=== PATIENT | female | born 1955 | race Caucasian/White ===

== ENCOUNTER → 2016-11-24 | Outpatient (CLI) | payer BC ==
--- NOTE | 2016-11-27 10:35 | MM ---
Reason for exam: screening (asymptomatic). Last mammogram was performed 1 year and 4 months ago. History: Patient is postmenopausal and had first child at age 32. Family history of breast cancer in mother at age 50, breast cancer in maternal aunt at age 40, breast cancer in maternal aunt at age 50, and breast cancer in maternal cousin. Benign MG stereo VAD BX RT of the right breast, August 12, 2014. Took hormonal contraceptives for 2 years. Physical Findings: A clinical breast exam by your physician is recommended on an annual basis and results should be correlated with mammographic findings. MG 3D Screening Mammo W/Cad Bilateral CC and MLO view(s) were taken. Prior study comparison: August 02, 2015, bilateral MG 3d screening mammo w/cad. August 09, 2014, right breast MG work up mamm w CAD RT. There are scattered fibroglandular densities. Previous mammotome biopsy in the right breast. There is no discrete abnormality. ASSESSMENT: Benign, BI-RAD 2 RECOMMENDATION: Routine screening mammogram of both breasts in 1 year.
== END ==
LOC: RADMAMWWP 10:02
PROVIDERS: ATTEND Family Medicine
DX: Z12.31 Encounter for screening mammogram for malignant neoplasm of breast (principal)
CPT/HCPCS: 77063; G0202

== ENCOUNTER → 2018-04-29 | Outpatient (CLI) | payer BC ==
--- NOTE | 2018-05-01 08:47 | MM ---
Reason for exam: screening (asymptomatic). Last mammogram was performed 1 year and 5 months ago. History: Patient is postmenopausal and had first child at age 32. Family history of breast cancer in mother at age 50, breast cancer in maternal aunt at age 40, breast cancer in maternal aunt at age 50, and breast cancer in maternal cousin. Benign MG stereo VAD BX RT of the right breast, August 12, 2014. Took hormonal contraceptives for 2 years. Physical Findings: A clinical breast exam by your physician is recommended on an annual basis and results should be correlated with mammographic findings. MG 3D Screening Mammo W/Cad Bilateral CC and MLO view(s) were taken. Prior study comparison: November 24, 2016, bilateral MG 3d screening mammo w/cad. August 02, 2015, bilateral MG 3d screening mammo w/cad. There are scattered fibroglandular densities. Previous mammotome biopsy in the right breast. No significant changes when compared with prior studies. ASSESSMENT: Negative, BI-RAD 1 RECOMMENDATION: Routine screening mammogram of both breasts in 1 year.
== END | disposition home or self-care (01) ==
LOC: RADMAMWWP 07:54
PROVIDERS: ATTEND Family Medicine
DX: Z12.31 Encounter for screening mammogram for malignant neoplasm of breast (principal)
CPT/HCPCS: 77063; 77067

== ENCOUNTER → 2019-06-29 | Outpatient (CLI) | payer BC ==
--- NOTE | 2019-07-01 10:33 | MM ---
Reason for exam: screening (asymptomatic). Last mammogram was performed 1 year and 2 months ago. History: Patient is postmenopausal and had first child at age 32. Family history of breast cancer in mother at age 50, breast cancer in maternal aunt at age 40, breast cancer in maternal aunt at age 50, and breast cancer in maternal cousin. Benign MG stereo VAD BX RT of the right breast, August 12, 2014. Took hormonal contraceptives for 2 years. Physical Findings: A clinical breast exam by your physician is recommended on an annual basis and results should be correlated with mammographic findings. MG 3D Screening Mammo W/Cad Bilateral CC and MLO view(s) were taken. Prior study comparison: April 29, 2018, bilateral MG 3d screening mammo w/cad. November 24, 2016, bilateral MG 3d screening mammo w/cad. There are scattered fibroglandular densities. Previous mammotome biopsy in the right breast. No significant changes when compared with prior studies. ASSESSMENT: Negative, BI-RAD 1 RECOMMENDATION: Routine screening mammogram of both breasts in 1 year.
== END | disposition home or self-care (01) ==
LOC: RADMAMWWP 15:50
PROVIDERS: ATTEND Family Medicine
DX: Z12.31 Encounter for screening mammogram for malignant neoplasm of breast (principal)
CPT/HCPCS: 77063; 77067

== ENCOUNTER 2019-07-06 07:53 | Day surgery (SDC) | payer BC ==
[2019-07-01 15:28] VITALS: BMI 31.1
[~2019-07-06 07:53] MED LIST: LACTATED RINGERS 1,000 ML IV SCH; LIDOCAINE 1% 20 ML VIAL (10MG/ML) FOR IV START INTRADERMA PRN
[2019-07-06 08:50] VITALS: RESP 16; TEMP 98.6
[2019-07-06] MEDS ORDERED: PROPOFOL 10 MG/ML 20 ML VIAL IV ONE (09:14)
[2019-07-06] MEDS ORDERED: LIDOCAINE 1% INJ 10MG/ML (20 ML MDV) ONE (09:14)
--- NOTE | 2019-07-06 09:21 | P.GSHP ---
History of Present Illness H&P Date: 07/06/19 Chief Complaint: History of colonic Polyps This is a 63-year-old female who presents today for colonoscopy. Patient is. History of colon polyps. Past Medical History Past Medical History: GERD/Reflux Additional Past Medical History / Comment(s): CROHNS, PAST HX OF MIGRAINES, BENIGN ESSENTIAL TREMORS. History of Any Multi-Drug Resistant Organisms: None Reported Past Surgical History: Bowel Resection, Cholecystectomy, Tonsillectomy Additional Past Surgical History / Comment(s): BOWEL RESECTION X2, EXPLORATORY WITH DIAGNOSIS OF CROHNS (JUN 1982). Past Anesthesia/Blood Transfusion Reactions: No Reported Reaction Past Psychological History: No Psychological Hx Reported Smoking Status: Never smoker Past Alcohol Use History: Rare Past Drug Use History: None Reported - Past Family History Mother Family Medical History: Cancer Additional Family Medical History / Comment(s): BREAST CANCER WITH BONE METS Father Family Medical History: Cancer Additional Family Medical History / Comment(s): LUNG CANCER Medications and Allergies Home Medications Medication Instructions Recorded Confirmed Type Levothyroxine Sodium [Synthroid] 112 mcg PO DAILY 07/30/14 07/06/19 History Calcium/Magnesium/Zinc 1 each PO DAILY 07/01/19 07/06/19 History [Fgkpysg-Ukhazjxav-Omzy Tablet] Prevacid (Unknown Dose) 1 dose PO DAILY 07/01/19 07/06/19 History Propranolol HCl [Inderal Xl] 80 mg PO DAILY 07/01/19 07/06/19 History Vitamin B Complex 1 each PO DAILY 07/01/19 07/06/19 History Vitamin K (Unknown Dose) 1 tab PO DAILY 07/01/19 07/06/19 History Allergies Allergy/AdvReac Type Severity Reaction Status Date / Time Penicillins Allergy Unknown Verified 07/06/19 08:34 Childhood Surgical - Exam Vital Signs Temp Pulse Resp BP Pulse Ox 98.6 F 70 16 136/77 96 07/06/19 08:40 07/06/19 08:40 07/06/19 08:40 07/06/19 08:40 07/06/19 08:40 - General well developed, well nourished, no distress - Eyes PERRL - ENT normal pinna - Neck no masses - Respiratory normal expansion - Cardiovascular Rhythm: regular - Abdomen Abdomen: soft, non tender
--- NOTE | 2019-07-06 09:30 | P.OP ---
Date of Procedure: 07/06/19 Preoperative Diagnosis: History of colon polyps Postoperative Diagnosis: Normal colonoscopy status post right colectomy Procedure(s) Performed: Colonoscopy Anesthesia: MAC Surgeon: Derek Rand Pathology: none sent Condition: stable Disposition: PACU Description of Procedure: The patient's placed on the endoscopy table in the lateral position. She received IV sedation. Digital rectal exam performed which revealed no abnormalities. The flexible colonoscope was then placed patient anus passed throughout the entire colon. The patient had a previous right colectomy. The ileocolonic vessels was visualized. Scope was withdrawn. The remainder the ascending, transverse and descending colon appeared normal. The sigmoid colon.. Scope summer back the rectum this appeared normal. Scope was withdrawn for patient.
[2019-07-06 09:52] VITALS: BP 121/81; PULSE 71
== END 2019-07-06 10:23 | disposition home or self-care (01) ==
LOC: ORWHC2ENDO 07:53
PROVIDERS: ATTEND Surgery
DX: Z86.010 Personal history of colon polyps (principal); K21.9 Gastro-esophageal reflux disease without esophagitis; Z88.0 Allergy status to penicillin; Z90.49 Acquired absence of other specified parts of digestive tract; Z80.3 Family history of malignant neoplasm of breast; Z80.1 Family history of malignant neoplasm of trachea, bronchus and lung; Z79.890 Hormone replacement therapy; Z79.899 Other long term (current) drug therapy; E07.9 Disorder of thyroid, unspecified
CPT/HCPCS: 45378; J2001; J2704

== ENCOUNTER → 2019-11-05 | Outpatient (CLI) | payer BC ==
--- NOTE | 2019-11-05 08:49 | US ---
EXAMINATION TYPE: US pelvic complete DATE OF EXAM: 11/05/2019 COMPARISON: NONE CLINICAL HISTORY: R94.5 abnormal results of liver function studies. Pt states ABD pain, pt states rec ent Chron' s flare-up, pt states ovary removed many years ago TECHNIQUE: Transabdominal (TA). Transabdominal sonographic images of the pelvis were acquired. Date of LMP: 2006 EXAM MEASUREMENTS: Uterus: 7.1 x 2.3 x 4.1 cm Endometrial Stripe: 0.2 cm Right Ovary: 1.4 x 1.3 x 0.8 cm 1. Uterus: Anteverted Appeared wnl 2. Endometrium: thickness wnl, incidentally noted small calcifications near endometrium, benign. 3. Right Ovary: Appeared wnl 4. Left Ovary: Surgically absent 5. Bilateral Adnexa: wnl 6. Posterior cul-de-sac: wnl IMPRESSION: Surgical absence of the left ovary. Unremarkable pelvic ultrasound. No endometrial thicke purnima. Atrophy of the right ovary.
--- NOTE | 2019-11-05 08:51 | US ---
EXAMINATION TYPE: US abdomen complete DATE OF EXAM: 11/05/2019 COMPARISON: NONE CLINICAL HISTORY: R94.5 abnormal results of liver function studies. Elevated LFT's EXAM MEASUREMENTS: Liver Length: 17.1 cm CBD: 0.8 cm Spleen: 11.5 cm Right Kidney: 9.6 x 4.2 x 4.4 cm Left Kidney: 10.5 x 4.8 x 4.6 cm Pancreas: Body wnl, mid and distal portion gassed out Liver: Difficult to penetrate. There is increased echogenicity of the hepatic parenchyma with dimini shed visualization of the portal triads most commonly relating to hepatic steatosis and limiting eval uation for underlying hepatic masses. Gallbladder: Surgically absent Evidence for sonographic Hou's sign: No CBD: wnl for post maggi Spleen: wnl Right Kidney: wnl Left Kidney: wnl Upper IVC: wnl Abd Aorta: wnl Anterior to Aorta there is a hypoechoic, ovoid area= 3.5 x 1.7 x 3.2 cm The intrahepatic portion of the IVC and proximal abdominal aorta are within normal limits. There is no evidence of cholelithiasis. Common bile duct is unremarkable. The visualized portions of the nix creas are homogenous. The spleen is unremarkable. Kidneys are symmetric and free of hydronephrosis. No renal lesions are seen. IMPRESSION: 1. Sonographic findings most commonly related to hepatic steatosis. Correlate with liver function xochitl ts. 2. Anterior to the mid abdominal aorta there is an ovoid hypoechoic structure measuring 3.5 x 1.7 x 3 .2 cm, unclear in etiology on ultrasound. CT abdomen and pelvis with intravenous contrast is recommen ded for further evaluation.
== END ==
LOC: RADUSWWP 07:34
PROVIDERS: ATTEND Physician Assistant Medical
DX: R93.3 Abnormal findings on diagnostic imaging of other parts of digestive tract (principal); Z90.721 Acquired absence of ovaries, unilateral
CPT/HCPCS: 76700; 76856

== ENCOUNTER → 2019-11-12 | Outpatient (CLI) | payer BC ==
--- NOTE | 2019-11-12 14:43 | CT ---
EXAMINATION TYPE: CT abdomen pelvis w con DATE OF EXAM: 11/12/2019 COMPARISON: None INDICATION: Chronic disease, large intestine DLP: 867 mGycm, Automated exposure control for dose reduction was used. CONTRAST: 100 ml mL of Isovue 300. Study performed with Oral Contrast TECHNIQUE: Axial images were obtained from above the diaphragm to the pubic rami in the axial plane a t 5 mm thick sections. Reconstructed images are reviewed on the computer in the coronal plane. FINDINGS: Limited CT sections are obtained the lung bases. The lung bases are clear. CT ABDOMEN: Liver: Normal Spleen: Normal Pancreas: Normal Adrenal glands: The adrenal glands are normal. Gallbladder: Surgically absent Kidneys: No masses are evident. No hydronephrosis is present. No cysts are present. Delayed images were obtained through the kidneys, which remain unremarkable. Aorta: Normal Inferior vena cava: Normal. CT PELVIS: There appears to be some circumferential narrowing of the rectum. Clinical correlation is recommended . Oral contrast extends to the level the rectum. There are some loops of bowel with incomplete disten tion limiting their evaluation. Appendix: Normal as visualized. Urinary bladder: Normal. Genitourinary structures: Uterus is unremarkable. Adnexal regions are normal. Osseous structures: No suspicious lytic or sclerotic lesions are evident. IMPRESSIONS: 1. Focal narrowing at the level of rectum related to neoplasm or peristalsis. Clinical correlation r ecommended. Consider sigmoidoscopy.
== END | disposition home or self-care (01) ==
LOC: RADCTMAIN 07:07
PROVIDERS: ATTEND Family Medicine
DX: K62.4 Stenosis of anus and rectum (principal); K50.10 Crohn's disease of large intestine without complications
CPT/HCPCS: 74177; Q9967

== ENCOUNTER 2019-11-25 08:49 | Day surgery (SDC) | payer BC ==
[2019-11-23 09:21] VITALS: BMI 31.8
[~2019-11-25 08:49] MED LIST changes: +LIDOCAINE 1% (10MG/ML) FOR IV START INTRADERMA PRN; -LIDOCAINE 1% 20 ML VIAL (10MG/ML) FOR IV START INTRADERMA PRN
[2019-11-25 09:28] VITALS: RESP 16; TEMP 97.9
[2019-11-25] MEDS ORDERED: PROPOFOL 10 MG/ML 20 ML VIAL IV ONE (10:11)
--- NOTE | 2019-11-25 10:16 | P.GSHP ---
History of Present Illness H&P Date: 11/25/19 Chief Complaint: Colitis, colon polyps Is a 63-year-old female with history of colitis and colon polyps. Patient presents today for colonoscopy. Past Medical History Past Medical History: GERD/Reflux, Thyroid Disorder Additional Past Medical History / Comment(s): CROHNS, HX MIGRAINES, ESSENTIAL TREMORS., STATES RECENT BOWEL "BLOCKAGE" AND CT SCAN ., BRUISES FROM IV ATTEMPTS. History of Any Multi-Drug Resistant Organisms: None Reported Past Surgical History: Bowel Resection, Section, Cholecystectomy, Tonsillectomy Additional Past Surgical History / Comment(s): TONSILLS (CHILD), BOWEL RESECTION X2, EXPLORATORY WITH DIAGNOSIS OF CROHNS (JUN 1982) Past Anesthesia/Blood Transfusion Reactions: No Reported Reaction Past Psychological History: No Psychological Hx Reported Smoking Status: Never smoker Past Alcohol Use History: Rare Past Drug Use History: None Reported - Past Family History Mother Family Medical History: Cancer Additional Family Medical History / Comment(s): BREAST CANCER WITH BONE METS Medications and Allergies Home Medications Medication Instructions Recorded Confirmed Type Levothyroxine Sodium [Synthroid] 112 mcg PO SUMOTUTHFRSA 07/30/14 11/25/19 History Calcium/Magnesium/Zinc 1 each PO DAILY 07/01/19 11/25/19 History [Xttgoox-Tcavbnhcx-Dnyg Tablet] Propranolol HCl [Inderal Xl] 80 mg PO DAILY 07/01/19 11/25/19 History Vitamin B Complex 1 each PO DAILY 07/01/19 11/25/19 History Ergocalciferol (Vitamin D2) 1,250 mcg PO DAILY 11/23/19 11/25/19 History [Vitamin D2] Glucosam/Johnson-Msm1/C/Anjum/Bosw 1 each PO DAILY 11/23/19 11/25/19 History [Glucosamine-Chondroitin Tablet] Lansoprazole 30 mg PO Q48H 11/23/19 11/25/19 History Phytonadione [Vitamin K] 100 mcg PO DAILY 11/23/19 11/25/19 History Allergies Allergy/AdvReac Type Severity Reaction Status Date / Time Penicillins Allergy Unknown Verified 11/25/19 09:21 Childhood Surgical - Exam Vital Signs Temp Pulse Resp BP Pulse Ox 97.9 F 74 16 142/93 97 11/25/19 09:24 11/25/19 09:24 11/25/19 09:24 11/25/19 09:24 11/25/19 09:24 - General well developed, no distress - Eyes PERRL - ENT normal pinna - Neck no masses - Respiratory normal expansion - Cardiovascular Rhythm: regular - Abdomen Abdomen: soft, non tender Assessment and Plan Assessment: History of colitis and colon polyps. We'll perform colonoscopy
--- NOTE | 2019-11-25 10:25 | P.OP ---
Date of Procedure: 11/25/19 Preoperative Diagnosis: History of colitis, colon polyp Questionable rectal narrowing on CAT scan Postoperative Diagnosis: External hemorrhoids No evidence of rectal mass, stricture Normal colonoscopy Procedure(s) Performed: Colonoscopy Anesthesia: MAC Surgeon: Derek Rand Pathology: none sent Condition: stable Disposition: PACU Description of Procedure: The patient's placed on the endoscopy table lateral position. She received IV stage. Digital rectal exam was performed which revealed external hemorrhoids. Flexible colonoscope was then placed patient anus and passed throughout the entire colon. The patient appeared to have a partial right free. The right colon appeared normal. There is no insufflation. The ascending colon, transverse colon, descending colon and sigmoid colon appeared normal. Scope was then brought back the rectum and this appeared normal. There is known to any stricture or mass of the rectum. Scope was withdrawn for patient.
[2019-11-25 10:50] VITALS: BP 113/72; PULSE 70
[2019-11-25 19:38] LABS: Hepatitis A Antibody IgM Non-Reactive (Non-Reactive); Hepatitis B Core IgM Non-Reactive (Non-Reactive); Hepatitis B Surface Antigen Non-Reactive (Non-Reactive); Hepatitis C IgG Antibody Non-Reactive (Non-Reactive)
--- NOTE | 2019-11-27 14:14 | CDI ---
Date: 11.27.19 CDS/Cyanide Case Hardener Name: Shira Gimenez Phone: If any questions, call Tameka Sánchez Radio News Anchor at [phone] Patient Name: Yue Carr Admit Date: 11.25.19 Discharge Date: 11.25.19 ATTENTION: The [facility] Coding Staff appreciate your assistance in clarifying documentation. Please respond to the clarification below the line at the bottom and electronically sign. The [facility] Coding staff will review the response and follow-up if needed. Please note: Queries are made part of the Legal Health Record. If you have any questions, please contact the Radio News Anchor. Dear Dr. Rand On the colonoscopy report you do mention that the scope was passed through the entire colon, please specify exactly how far the scope actually was taken to, did the scope actually go to the cecum? Thank you for your kind consideration. The colonoscope was passed throughout the entire colon. The ileocecal valve was visualized. ADOLFO
== END 2019-11-25 11:05 | disposition home or self-care (01) ==
LOC: ORWHC2ENDO 08:49
PROVIDERS: ATTEND Surgery
DX: K64.4 Residual hemorrhoidal skin tags (principal); Z87.19 Personal history of other diseases of the digestive system; Z86.010 Personal history of colon polyps; K21.9 Gastro-esophageal reflux disease without esophagitis; E07.9 Disorder of thyroid, unspecified; K50.90 Crohn's disease, unspecified, without complications; K08.89 Other specified disorders of teeth and supporting structures; G25.0 Essential tremor; Z86.69 Personal history of other diseases of the nervous system and sense organs; Z90.49 Acquired absence of other specified parts of digestive tract; Z98.890 Other specified postprocedural states; Z90.89 Acquired absence of other organs; Z79.890 Hormone replacement therapy; Z79.899 Other long term (current) drug therapy; Z88.0 Allergy status to penicillin; Z80.3 Family history of malignant neoplasm of breast; Z80.8 Family history of malignant neoplasm of other organs or systems
CPT/HCPCS: 80074; 45378; J2704

== ENCOUNTER → 2020-07-04 | Outpatient (CLI) | payer MEDICARE, BC ==
--- NOTE | 2020-07-06 11:21 | MM ---
Reason for exam: screening (asymptomatic). Last mammogram was performed 1 year ago. History: Patient is postmenopausal and had first child at age 32. Family history of breast cancer in mother at age 50, breast cancer in maternal aunt at age 40, breast cancer in maternal aunt at age 50, and breast cancer in maternal cousin. Benign MG stereo VAD BX RT of the right breast, August 12, 2014. Took hormonal contraceptives for 2 years. Physical Findings: A clinical breast exam by your physician is recommended on an annual basis and results should be correlated with mammographic findings. MG 3D Screening Mammo W/Cad Bilateral CC and MLO view(s) were taken. Prior study comparison: June 29, 2019, bilateral MG 3d screening mammo w/cad. April 29, 2018, bilateral MG 3d screening mammo w/cad. There are scattered fibroglandular densities. Previous mammotome biopsy in the right breast. ASSESSMENT: Benign, BI-RAD 2 RECOMMENDATION: Routine screening mammogram of both breasts in 1 year.
== END | disposition home or self-care (01) ==
LOC: RADMAMWWP 08:30
PROVIDERS: ATTEND Family Medicine
DX: Z12.31 Encounter for screening mammogram for malignant neoplasm of breast (principal)
CPT/HCPCS: 77063; 77067

== ENCOUNTER → 2021-03-02 | Outpatient (CLI) | payer MEDICARE, BC ==
--- NOTE | 2021-03-02 11:49 | XR ---
EXAMINATION TYPE: XR foot complete LT DATE OF EXAM: 03/02/2021 COMPARISON: NONE HISTORY: Pain TECHNIQUE: Three views are submitted. FINDINGS: The osseous structures are intact. There is no acute fracture or dislocation. Hypertrophic arthrop athy of the first MTP. Calcaneal spurs are noted. IMPRESSION: 1. Hypertrophic arthropathy with calcaneal spurs.
--- NOTE | 2021-03-02 11:50 | XR ---
EXAMINATION TYPE: XR ankle complete LT DATE OF EXAM: 03/02/2021 COMPARISON: NONE HISTORY: Pain and swelling FINDINGS: Three views of the ankle demonstrate the ankle mortise to be intact and symmetric. The joint spaces are preserved. The osseous structures are intact. There are calcaneal spurs. IMPRESSION: 1. Calcaneal spurs.
== END | disposition home or self-care (01) ==
LOC: RADXRYALE 11:16
PROVIDERS: ATTEND Physician Assistant Medical
DX: M77.32 Calcaneal spur, left foot (principal); M19.072 Primary osteoarthritis, left ankle and foot

== ENCOUNTER → 2021-06-15 | Outpatient (CLI) | payer MEDICARE, BC ==
--- NOTE | 2021-06-15 15:59 | BD ---
EXAMINATION TYPE: Axial Bone Density DATE OF EXAM: 06/15/2021 COMPARISON: 07.27.2014 CLINICAL HISTORY: 65 YR OLD FEMALE......ICD-10 CODE: M85.80 DISORDER OF BD Height: 61.4 Weight: 185 FRAX RISK QUESTIONS: 5. Chronic liver disease: ONLY SLIGHT ELEVATED ENZYMES RISK FACTORS HISTORY OF: Postmenopausal woman: YES, AT ABOUT 50 YRS OLD Hyperparathyroidism: NO Adrenal Insufficiency: NO MEDICATIONS: Prednisone or other steroids: FOR CRONES FLARE UPS ON AND OFF FOR 20 PLUS YRS Thyroid Medications: YES, SYNTHROID, 30+ YRS Additional Medications: STEROIDS PERIODICALLY, REFLUX MEDS, VIT D AND CALCIUM Additional History: CRONES DISEASE, REFLUX, TREMORS, VERTIGO EXAM MEASUREMENTS: Bone mineral densitometry was performed using the [employer] System. Bone mineral density as measured about the Lumbar spine is: ----- L1-L4(G/cm2): 0.870 T Score Values are as follows: ----- L1: -3.0 ----- L2: -2.8 ----- L3: -2.6 ----- L4: -2.0 ----- L1-L4: -2.6 Bone mineral density has: Decreased -2.8% since study of: 07.27.2014 Bone mineral density about the R hip (g/cm2): 0.841 Bone mineral density about the L hip (g/cm2): 0.822 T Score values are as follows: -----R Neck: -1.9 -----L Neck: -2.0 -----R Total: -1.3 -----L Total: -1.5 Bone mineral density has: Decreased -1.1% since study of: 07.27.2014 FRAX%s: THERE IS A 16.4% CHANCE FOR A MAJOR OSTEOPOROTIC FX AND A 2.9% FOR HIP......PROBABILITY FO R FX IN 10 YRS TIME IMPRESSION: Osteoporosis (T Score less than -2.5). There is increased fracture risk and therapy is usually indicated based on age. Re-Screen 1-2 years. NOTE: T-SCORE=SD OF THE YOUNG ADULT MEAN.
== END | disposition home or self-care (01) ==
LOC: RADBDWWP 11:50
PROVIDERS: ATTEND Family Medicine
DX: M81.0 Age-related osteoporosis without current pathological fracture (principal)
CPT/HCPCS: 77080

== ENCOUNTER → 2021-07-06 | Outpatient (CLI) | payer MEDICARE, BC ==
--- NOTE | 2021-07-07 12:07 | MM ---
Reason for exam: screening (asymptomatic). Last mammogram was performed 1 year ago. History: Patient is postmenopausal and had first child at age 32. Family history of breast cancer in mother at age 50, breast cancer in maternal aunt at age 40, breast cancer in maternal aunt at age 50, and breast cancer in maternal cousin. Benign MG stereo VAD BX RT of the right breast, August 12, 2014. Took hormonal contraceptives for 2 years. Physical Findings: A clinical breast exam by your physician is recommended on an annual basis and results should be correlated with mammographic findings. MG 3D Screening Mammo W/Cad Bilateral CC and MLO view(s) were taken. Prior study comparison: July 04, 2020, bilateral MG 3d screening mammo w/cad. June 29, 2019, bilateral MG 3d screening mammo w/cad. April 29, 2018, bilateral MG 3d screening mammo w/cad. There are scattered fibroglandular densities. No significant changes when compared with prior studies. ASSESSMENT: Benign, BI-RAD 2 RECOMMENDATION: Routine screening mammogram of both breasts in 1 year.
== END | disposition home or self-care (01) ==
LOC: RADMAMWWP 08:09
PROVIDERS: ATTEND Family Medicine
DX: Z12.31 Encounter for screening mammogram for malignant neoplasm of breast (principal)
CPT/HCPCS: 77063; 77067

== ENCOUNTER → 2022-07-10 | Outpatient (CLI) | payer MEDICARE, BC ==
--- NOTE | 2022-07-11 10:14 | MM ---
Reason for Exam: Screening (asymptomatic). Last screening mammogram was performed 12 month(s) ago. Patient History: Menarche at age 11. First Full-Term at age 32. Late child-bearing (after 30). Right ovary removed at age 32. Postmenopausal. Patient has history of breast feeding. Patient used Hormonal Contraceptives for 2 years. 08/12/2014, Benign Core Biopsy on the right side. Maternal cousin had breast cancer. Maternal aunt had breast cancer, age 40. Maternal aunt had breast cancer, age 50. Mother had breast cancer, age 50. Risk Values: Adelina 5 year model risk: 4.0%. NCI Lifetime model risk: 13.3%. Prior Study Comparison: 06/29/2019 Bilateral Screening Mammogram, [facility]. 07/04/2020 Bilateral Screening Mammogram, [facility]. 07/06/2021 Bilateral Screening Mammogram, [facility]. Tissue Density: There are scattered fibroglandular densities. Findings: Analyzed By CAD. There is no suspicious group of microcalcifications or new suspicious mass in either breast. No significant change from prior exams. Overall Assessment: Benign, BI-RAD 2 Management: Screening Mammogram of both breasts in 1 year. A clinical breast exam by your physician is recommended on an annual basis and results should be correlated with mammographic findings. Electronically signed and approved by: Elio Leary D.O.
--- NOTE | 2022-07-11 10:14 | MM ---
Reason for Exam: Screening (asymptomatic). Last screening mammogram was performed 12 month(s) ago. Patient History: Menarche at age 11. First Full-Term at age 32. Late child-bearing (after 30). Right ovary removed at age 32. Postmenopausal. Patient has history of breast feeding. Patient used Hormonal Contraceptives for 2 years. 08/12/2014, Benign Core Biopsy on the right side. Maternal cousin had breast cancer. Maternal aunt had breast cancer, age 40. Maternal aunt had breast cancer, age 50. Mother had breast cancer, age 50. Risk Values: Adelina 5 year model risk: 4.0%. NCI Lifetime model risk: 13.3%. Prior Study Comparison: 06/29/2019 Bilateral Screening Mammogram, [facility]. 07/04/2020 Bilateral Screening Mammogram, [facility]. 07/06/2021 Bilateral Screening Mammogram, [facility]. Tissue Density: There are scattered fibroglandular densities. Findings: Analyzed By CAD. There is no suspicious group of microcalcifications or new suspicious mass in either breast. No significant change from prior exams. Overall Assessment: Benign, BI-RAD 2 Management: Screening Mammogram of both breasts in 1 year. A clinical breast exam by your physician is recommended on an annual basis and results should be correlated with mammographic findings. Electronically signed and approved by: Elio Leary D.O.
== END | disposition home or self-care (01) ==
LOC: RADMAMWWP 08:33
PROVIDERS: ATTEND Family Medicine
DX: Z12.31 Encounter for screening mammogram for malignant neoplasm of breast (principal)
CPT/HCPCS: 77063; 77067

== ENCOUNTER → 2023-07-11 | Outpatient (CLI) | payer MEDICARE, BC ==
--- NOTE | 2023-07-12 11:44 | MM ---
Reason for Exam: Screening (asymptomatic). Last screening mammogram was performed 12 month(s) ago. Patient History: Menarche at age 11. First Full-Term at age 32. Late child-bearing (after 30). Right ovary removed at age 32. Postmenopausal. Patient has history of breast feeding. Patient used Hormonal Contraceptives for 2 years. 08/12/2014, Benign Core Biopsy on the right side. Maternal cousin had breast cancer. Maternal aunt had breast cancer, age 40. Maternal aunt had breast cancer, age 50. Mother had breast cancer, age 50. Risk Values: Adelina 5 year model risk: 4.1%. NCI Lifetime model risk: 12.8%. Prior Study Comparison: 07/04/2020 Bilateral Screening Mammogram, [facility]. 07/06/2021 Bilateral Screening Mammogram, [facility]. 07/10/2022 Bilateral MG 3D screening mammo w/cad, [facility]. Tissue Density: The breast tissue is almost entirely fat. Findings: Analyzed By CAD. There is no suspicious group of microcalcifications or new suspicious mass in either breast. Overall Assessment: Negative, BI-RAD 1 Management: Screening Mammogram of both breasts in 1 year. . Patient should continue monthly self-breast exams. A clinical breast exam by your physician is recommended on an annual basis. This exam should not preclude additional follow-up of suspicious palpable abnormalities. Note on Adelina scores and lifetime risk: 1. A Adelina score greater than 3% is considered moderate risk. If this is the case, consider specialist referral to assess eligibility for a risk reducing agent. 2. If overall lifetime risk for the development of breast cancer is 20% or higher, the patient may qualify for future screening with alternating mammogram and breast MRI. Electronically signed and approved by: Lenny Lyon M.D. Radiologis
== END | disposition home or self-care (01) ==
LOC: RADMAMWWP 08:09
PROVIDERS: ATTEND Family Medicine
DX: Z12.31 Encounter for screening mammogram for malignant neoplasm of breast (principal); Z78.0 Asymptomatic menopausal state; Z80.3 Family history of malignant neoplasm of breast
CPT/HCPCS: 77063; 77067

== ENCOUNTER → 2024-07-14 | Outpatient (CLI) | payer MEDICARE, BC ==
--- NOTE | 2024-07-14 10:05 | MM ---
Reason for Exam: Screening (asymptomatic). Last screening mammogram was performed 12 month(s) ago. Patient History: Menarche at age 11. First Full-Term at age 32. Late child-bearing (after 29). Right ovary removed at age 32. Postmenopausal. Patient has history of breast feeding. Patient used Hormonal Contraceptives for 2 years. 08/12/2014, Benign Core Biopsy on the right side. Maternal cousin had breast cancer. Maternal aunt had breast cancer, age 40. Maternal aunt had breast cancer, age 50. Mother had breast cancer, age 50. Risk Values: Adelina 5 year model risk: 4.1%. NCI Lifetime model risk: 12.2%. Prior Study Comparison: 07/06/2021 Bilateral Screening Mammogram, [facility]. 07/10/2022 Bilateral MG 3D screening mammo w/cad, [facility]. 07/11/2023 Bilateral MG 3D screening mammo w/cad, [facility]. Tissue Density: There are scattered areas of fibroglandular density. Findings: Analyzed By CAD. There is no suspicious group of microcalcifications or new suspicious mass in either breast. Overall Assessment: Negative, BI-RAD 1 Management: Screening Mammogram of both breasts in 1 year. . Patient should continue monthly self-breast exams. A clinical breast exam by your physician is recommended on an annual basis. This exam should not preclude additional follow-up of suspicious palpable abnormalities. Note on Adelina scores and lifetime risk: 1. A Adelina score greater than 3% is considered moderate risk. If this is the case, consider specialist referral to assess eligibility for a risk reducing agent. 2. If overall lifetime risk for the development of breast cancer is 20% or higher, the patient may qualify for future screening with alternating mammogram and breast MRI. [facility], , 07/14/2024 10:02 AM. Electronically signed and approved by: Lenny Lyon M.D. Radiologis
--- NOTE | 2024-07-14 10:45 | BD ---
EXAMINATION TYPE: Axial Bone Density DATE OF EXAM: 07/14/2024 CLINICAL HISTORY: 68 years old Female. ICD-10 CODE: M85.9 DISORDER OF BONE Height: 62.5 Weight: 184.2 FRAX RISK QUESTIONS: Alcohol (3 or more units per day): no Family History (Parent hip fracture): no Glucocorticoids (More than 3mos): no (Ex: prednisone, prednisolone, methylprednisolone, dexamethasone, and hydrocortisone). History of Fracture in Adulthood: no Secondary Osteoporosis: 1. Type 1 Diabetes: no 2. Hyperthyroidism: no 3. Menopause before 45: no 4. Malnutrition: yes 5. Chronic liver disease: no Rheumatoid Arthritis: no Current Tobacco Use: no RISK FACTORS HISTORY OF: Surgery to Spine/Hip(right/left)/Wrist (right/left): no MEDICATIONS: Thyroid Medications: Synthroid How Lon plus years EXAM MEASUREMENTS: Bone mineral densitometry was performed using the REEL Qualified System. Bone mineral density as measured about the Lumbar spine is: ----- L1-L4(G/cm2): 0.893 T Score Values are as follows: ----- L1: -2.8 ----- L2: -2.6 ----- L3: -2.4 ----- L4: -2.0 ----- L1-L4: -2.4 Z Score Values are as follows: ----- L1: -1.8 ----- L2: -1.6 ----- L3: -1.4 ----- L4: -0.9 ----- L1-L4: -1.4 Bone mineral density has: increased 2.6 % since study of: 06.15.2021 Bone mineral density about the R hip (g/cm2): 0.801 Bone mineral density about the L hip (g/cm2): 0.818 T Score values are as follows: -----R Neck: -2.4 -----L Neck: -2.1 -----R Total: -1.6 -----L Total: -1.5 Z Score values are as follows: -----R Neck: -1.1 -----L Neck: -0.9 -----R Total: -0.6 -----L Total: -0.5 Bone mineral density has: decreased -2.5 % since study of: 06.15.2021 FRAX%s: The graph provided illustrates a 20.6% chance for a major osteoporotic fx and a 5.4% chance f or the hips probability for fx in 10 years time. IMPRESSION: Osteopenia (T Score between -2.5 and -1). There is slightly increased risk of fracture and the patient may be considered for treatment. Re-Screen 2-5 years. NOTE: T-SCORE=SD OF THE YOUNG ADULT MEAN. [facility], , 07/14/2024 10:43 AM
== END | disposition home or self-care (01) ==
LOC: RADMAMWWP 08:36
PROVIDERS: ATTEND Family Medicine
CPT/HCPCS: 77063; 77067; 77080

== ENCOUNTER → 2024-10-23 | Outpatient (CLI) | payer MEDICARE ==
--- NOTE | 2024-10-23 10:37 | US ---
EXAMINATION TYPE: US carotid duplex BILAT DATE OF EXAM: 10/23/2024 COMPARISON: NONE CLINICAL INDICATION: Female, 68 years old with history of R42 GIDDINESS DIZZINESS; dizziness Additional History: R42* Dizziness TECHNIQUE: Grayscale, color Doppler and spectral Doppler evaluation of the bilateral carotid systems and vertebral arteries. Indirect Doppler criteria was utilized. FINDINGS: EXAM MEASUREMENTS: RIGHT: Peak Systolic Velocity (PSV) cm/sec ----- Right CCA: 53.8 ----- Right ICA: 79.8 ----- Right ECA: 66.0 ICA/CCA ratio: 1.5 RIGHT: End Diastole cm/sec ----- Right CCA: 17.5 ----- Right ICA: 33.6 ----- Right ECA: 13.6 LEFT: Peak Systolic Velocity (PSV) cm/sec ----- Left CCA: 49.5 ----- Left ICA: 59.5 ----- Left ECA: 77.8 ICA/CCA ratio: 1.2 LEFT: End Diastole cm/sec ----- Left CCA: 17.5 ----- Left ICA: 21.8 ----- Left ECA: 16.8 VERTEBRALS (direction of flow): Right Vertebral: Antegrade Left Vertebral: Antegrade Rhythm: Normal RN SOCIAL WORK NOTES: no plaque or elevated velocities seen. Color Doppler imaging shows patency with blood flow throughout the carotid artery. Spectral waveforms are within normal limits. IMPRESSION: Right: No hemodynamically significant stenosis. Left: No hemodynamically significant stenosis. Criteria for Assigning % of Stenosis / Diameter reduction (Estimation based on the indirect measurements of the internal carotid artery velocities (ICA PSV). 1. Normal (no stenosis)=ICA PSV < 125 cm/s: ratio < 2.0: ICA EDV<40 cm/s. 2. Less than 50% stenosis=ICA PSV < 125 cm/s: ratio < 2.0: ICA EDV<40 cm/s. 3. 50 to 69% stenosis=ICA PSV of 125 to 230 cm/s: ration 2.0 ? 4.0: ICA EDV 40-100 cm/s. 4. Greater than 70% stenosis to near occlusion= ICA PSV > 230 cm/s: ratio > 4.0: ICA EDV > 100 cm/s. 5. Near occlusion= ICA PSV velocities may be low or undetectable: variable ratio and ICA EDV. 6. Total occlusion=unable to detect flow. [facility], , 10/23/2024 10:35 AM
== END | disposition home or self-care (01) ==
LOC: RADUSWWP 10:04
PROVIDERS: ATTEND Family Medicine
DX: G43.909 Migraine, unspecified, not intractable, without status migrainosus (principal); G25.0 Essential tremor; R42 Dizziness and giddiness
CPT/HCPCS: 93880